=== PATIENT | female | born 1980 ===

== ENCOUNTER 2020-11-27 06:30 | Day surgery (SDC) | payer OTHER ==
[~2020-11-27 06:30] MED LIST: CLONAZEPAM2 MG PO; ELAVIL PO; MAXALT10 MG PO; NEXIUM PO; TALTZ
== END 2020-11-27 15:00 | disposition home or self-care (01) ==
LOC: CIR.AMB 06:30
PROVIDERS: ATTEND Specialist
DX: N84.0 Polyp of corpus uteri (principal); Z20.822 Contact with and (suspected) exposure to COVID-19

== ENCOUNTER 2021-02-22 14:46 | Outpatient (CLI) | payer OTHER | END 2021-02-22 15:00 | disposition home or self-care (01) | LOC: ASH CLINIC 14:46 | PROVIDERS: ATTEND General Practice | DX: U07.1 COVID-19 (principal); Z23 Encounter for immunization ==